=== PATIENT | female | born 1930 | race Caucasian/White ===

== ENCOUNTER 2016-11-05 19:05 | Inpatient (IN) | payer OTHER ==
[~2016-11-05] VITALS: Ht 175.3 cm; Wt 92.2 kg
[~2016-11-05 19:05] MED LIST: AMOXICILLIN500 MG PO; ASPIR 8181 M1 PO; ASPIR-LOW81 MG PO; ATORVASTATIN CA40 MG PO; BACTRIM,SEPT1 TABLET PO; COUMADIN,JANTO2.5 MG PO; CRANBERRY 4001 EAC1 PO; DOCUSATE SODIU100 MG PO; ENDOCET 5-3251 EACH PO; HYDROCORTISONE15 GM TP; LEVOTHROID,S0.075 MG PO; LEVOTHYROXINE88 MCG PO; LOPRESSOR12.5 MG PO; METOPROLOL SUCC25 MG PO; PANTOPRAZOLE SO40 MG PO; UBIQUINOL100 MG PO; VITAMIN B12 100MCG PO
[2016-11-05 22:19] LABS: ADD MIUA? YES; BILIRUBIN NEGATIVE; BLOOD LARGE; COLOR YELLOW ((YELLOW)); GLUCOSE (STRIP) NEGATIVE; KETONES 5; LEUKOCYTES LARGE; NITRITE POSITIVE; PROTEIN (STRIP) 100; SPECIFIC GRAVITY 1.011 (1.000-1.030); UROBILINOGEN 0.2 MG/DL (0.2-1.0)
[2016-11-05 22:34] LABS: CASTS NONE SEEN /LPF; EPITHELIAL CELLS 1+ /HPF; MUCUS NONE SEEN /LPF; RED BLOOD CELLS RARE /HPF (0-5); WHITE BLOOD CELLS TNTC /HPF (0-5)
[2016-11-05 22:35] LABS: BACTERIA 4+ /HPF; UCUL ADDED? YES
[2016-11-05 22:37] LABS: EOSINOPHIL (%) 0 % (0-5); HEMATOCRIT 37.5 % (36.0-46.0); IMMATURE GRANULOCYTE (%) 0.3 % (0.0-0.7); INSTRUMENT ABS NEUTROPHIL CT 6.7 K/uL; LYMPHOCYTE COUNT 1.1 K/uL (1.0-2.8); MCH 30.8 PG (29.0-34.0); MCHC 33.3 G/DL (30.0-36.0); MCV 92.4 FL (83-99); MONOCYTE (%) 12.7 % (3-12); MONOCYTE COUNT 1.2 K/uL (0-0.8); NEUTROPHIL (%) 74.1 % (45-76); NEUTROPHIL COUNT 6.7 K/uL (1.8-6.4); PLATELET COUNT 197 K/uL (156-360); RBC DIS.WIDTH-CV 13.7 % (11.8-14.6); RBC DIS.WIDTH-SD 46.7 % (39-53); RED BLOOD COUNT 4.06 M/uL (3.80-5.20); WHITE BLOOD COUNT 9.1 K/uL (4.1-10.2)
[2016-11-05 23:07] LABS: ANION GAP 12 MEQ/L (2-14); CHLORIDE 101 MEQ/L (99-109); DIRECT BILIRUBIN 0.3 mg/dL (0.0-0.3); POTASSIUM 3.9 MEQ/L (3.7-5.4); SAMPLE HEMOLYSIS CHECK 0; SAMPLE ICTERIC CHECK 0; SAMPLE LIPEMIA CHECK 0; SODIUM 134 MEQ/L (136-147)
[2016-11-05 23:13] LABS: ALKALINE PHOSPHATASE 81 IU/L (3-129); GFR ESTIMATE (CALCULATED) > 59 mL/min/; GLUCOSE 106 mg/dL (70-99); UREA NITROGEN (BUN) 15 mg/dL (9-23)
[2016-11-05 23:17] LABS: TROP-I INTERPRETATION NEGATIVE; TROPONIN-I < 0.01 ng/mL (0.0-0.30)
[2016-11-05 23:57] LABS: TROP-I INTERPRETATION NEGATIVE; TROPONIN-I 0.02 ng/mL (0.0-0.30)
[2016-11-06] MEDS ORDERED: PROTONIX40 MG PO (00:03)
[2016-11-06] MEDS ORDERED: BONE ESSENT166.75 MG PO (00:03)
[2016-11-06] MEDS ORDERED: LEVO-T100 MCG PO (00:03)
[2016-11-06] MEDS ORDERED: DAILY VITE1 EAC1 PO (00:04)
[2016-11-06 00:55] VITALS: BP 128/60
[2016-11-06 08:10] VITALS: BP 144/64
[2016-11-06 12:02] VITALS: BP 123/58
[2016-11-06 15:28] VITALS: BP 136/78
[2016-11-06 18:04] VITALS: BP 140/74
[2016-11-06 20:56] VITALS: BP 129/62
[2016-11-07 02:10] VITALS: BP 130/63
[2016-11-07 03:26] VITALS: BP 112/56
[2016-11-07 07:47] VITALS: BP 139/62
[2016-11-07 08:25] LABS: HEMATOCRIT 33.8 % (36.0-46.0); MCH 31.8 PG (29.0-34.0); MCHC 33.7 G/DL (30.0-36.0); MCV 94.4 FL (83-99); MEAN PLAT.VOLUME 10.9 uM^3 (9.5-12.4); PLATELET COUNT 194 K/uL (156-360); RBC DIS.WIDTH-CV 13.7 % (11.8-14.6); RBC DIS.WIDTH-SD 47.4 % (39-53); RED BLOOD COUNT 3.58 M/uL (3.80-5.20)
[2016-11-07 08:54] LABS: ANION GAP 8 MEQ/L (2-14); CHLORIDE 103 MEQ/L (99-109); GFR ESTIMATE (CALCULATED) > 59 mL/min/; GLUCOSE 98 mg/dL (70-99); POTASSIUM 4.6 MEQ/L (3.7-5.4); SAMPLE HEMOLYSIS CHECK 0; SAMPLE ICTERIC CHECK 0; SAMPLE LIPEMIA CHECK 0; SODIUM 136 MEQ/L (136-147); UREA NITROGEN (BUN) 11 mg/dL (9-23)
[2016-11-07 10:51] VITALS: BP 133/60
[2016-11-07 15:38] VITALS: BP 129/60
[2016-11-07 21:55] VITALS: BP 150/72
[2016-11-08] VITALS (7 sets, daily range): BP systolic 117–145; BP diastolic 65–77
[2016-11-09 03:21] VITALS: BP 134/54
[2016-11-09 07:16] VITALS: BP 140/63
[2016-11-09] MEDS ORDERED: BACTRIM,SEPT1 TABLET PO (07:53)
[2016-11-09] MEDS ORDERED: BACTRIM,SEPT1 TABLE1 PO (07:55)
[2016-11-09] MEDS ORDERED: FLOMAX0.4 MG PO (07:56)
[2016-11-09 11:16] VITALS: BP 155/69
== END 2016-11-09 14:09 | disposition home or self-care (01) | DRG 872 ==
LOC: EME 19:05 → EDOF 23:54 → 5WEST 23:54 → 2EAST 11-06 15:25 → 5WEST 11-06 15:25 → 2EAST 11-06 17:22
PROVIDERS: Emergency Medicine; Hospitalist
DX: R78.81 Bacteremia (principal); N39.0 Urinary tract infection, site not specified; B96.20 Unspecified Escherichia coli [E. coli] as the cause of diseases classified elsewhere; I48.2 Chronic atrial fibrillation; I10 Essential (primary) hypertension; E03.9 Hypothyroidism, unspecified; N31.9 Neuromuscular dysfunction of bladder, unspecified; R33.9 Retention of urine, unspecified; Z87.891 Personal history of nicotine dependence; Z86.718 Personal history of other venous thrombosis and embolism
CPT/HCPCS: 71020; 80048; 80076; 81003; 83605; 84484; 85025; 85027; 87040; 87077; 87086; 87186; 87801; 93005; 99281; 99285; G0378; J0696; J3260; J7030; J7050